=== PATIENT | female | born 1970 | race Caucasian/White ===

== ENCOUNTER 2017-01-18 20:11 | Emergency (ER) | payer OTHER ==
[~2017-01-18] VITALS: Ht 170.2 cm; Wt 59.0 kg
[~2017-01-18 20:11] MED LIST: ACID CONTROL20 MG PO; ADVAIR 100-501 EACH; B COMPLEX1 EAC1 PO; BACTRIM DS TAB1 EACH PO; CELEXA40 MG PO; CIPROFLOXACIN500 M1 PO; CLEOCIN HCL150 MG PO; DOXYCYCLINE 10100 MG PO; GLUCOSAMINE HC500 MG PO; GLUCOSAMINE1000 MG; HYDROXYZINE PAM50 MG PO; IBUPROFEN 800800 MG PO; INVEGA9 MG PO; KEFLEX500 MG PO; LATUDA60 MG PO; LORAZEPAM 0.50.5 MG PO; MEN'S MULTI-VI1 EACH PO; MILK THISTLE1 GM; MILK THISTLE150 MG PO; MULTI-VITAMIN1 EAC5; NORCO 10-325 T1 EACH PO; NORCO 5-325 TA1 EACH PO; PROAIR HFA8.5 GM; SYMBICORT80 MCG/4.1 INH; TESSALON PERLE100 MG PO; ULTRAM 50MG TAB50 MG PO; VALIUM5 MG PO; VITAMIN B-1100 M1 PO; ZOFRAN ODT4 MG PO
[2017-01-18] MEDS ORDERED: LATUDA20 MG PO (20:29)
[2017-01-18] MEDS ORDERED: SEROQUEL 25 MG25 M1 PO (20:30)
[2017-01-18 20:51] LABS: URINE BILIRUBIN NEGATIVE (Negative); URINE BLOOD 2+ (Negative); URINE COLOR YELLOW; URINE GLUCOSE-RANDOM* NEGATIVE (Negative); URINE KETONES NEGATIVE (Negative); URINE NITRITE NEGATIVE (Negative); URINE PROTEIN (DIPSTICK) NEGATIVE (Negative); URINE SPECIFIC GRAVITY 1.015 (1.003-1.035); URINE UROBILINOGEN 0.2 E.U./dl (0.2-1.0)
[2017-01-18 21:01] LABS: CASTS None Seen /LPF (None Seen); CRYSTALS None Seen /LPF (None Seen); SQUAMOUS 0-3 Few /LPF (0-3)
[2017-01-18 21:02] LABS: BACTERIA 1-9 Few /HPF (None Seen); URINE RBC 0-2 Rare /HPF (0-2); URINE WBC None Seen /HPF (0-5)
[2017-01-18 21:05] LABS: ABSOLUTE NEUTROPHILS 3.1 thou/uL (1.4-8.2); BASOPHILS 1.1 % (0.0-2.0); EOSINOPHILS 5.2 % (0.0-3.0); HEMATOCRIT 38.2 % (37.0-47.0); HEMOGLOBIN 13.4 gm/dL (12.0-15.0); LYMPHOCYTES 31.6 % (24.0-44.0); MCH 35.1 pg (26.0-34.0); MCHC 35.1 g/dL (28.0-37.0); MCV 100.1 fL (80.0-100.0); MONOCYTES 11.4 % (1.0-8.0); PLATELET COUNT 226 thou/uL (150-400); POLYS 50.7 % (36.0-66.0); RBC 3.82 mil/uL (4.20-5.00); RDW 13.3 % (10.5-14.5); WBC 6.1 thou/uL (4.0-11.0)
[2017-01-18 21:09] LABS: AMP/METHAMP POSITIVE (Negative); BARBITURATES Negative (Negative); BENZODIAZEPINES Negative (Negative); COCAINE POSITIVE (Negative); METHADONE Negative (Negative); OPIATES Negative (Negative); PCP Negative (Negative); THC Negative (Negative)
[2017-01-18 21:10] LABS: MANUAL DIFF NO
[2017-01-18 21:11] LABS: CALCIUM 8.8 mg/dL (8.5-10.1); CREATININE 0.9 mg/dL (0.6-1.0); POTASSIUM 4.2 mmol/L (3.5-5.1)
[2017-01-18 21:16] LABS: ALBUMIN 3.4 g/dL (3.4-5.0); TOTAL BILIRUBIN 0.3 mg/dL (<0.1-1.0); TOTAL PROTEIN 7.7 g/dL (6.4-8.2)
== END 2017-01-18 21:27 | disposition home or self-care (01) ==
LOC: ER 20:11
PROVIDERS: Physician Assistant
DX: F19.10 Other psychoactive substance abuse, uncomplicated (principal); R94.5 Abnormal results of liver function studies; F10.10 Alcohol abuse, uncomplicated; F17.210 Nicotine dependence, cigarettes, uncomplicated; Z86.19 Personal history of other infectious and parasitic diseases; Y90.4 Blood alcohol level of 80-99 mg/100 ml

== ENCOUNTER 2017-05-10 20:44 | Emergency (ER) | payer OTHER ==
[~2017-05-10] VITALS: Ht 170.2 cm; Wt 58.1 kg
[~2017-05-10 20:44] MED LIST changes: +LATUDA20 MG PO; +SEROQUEL 25 MG25 M1 PO
[2017-05-10] MEDS ORDERED: NORCO 5-325 TA1 EACH PO (22:23)
[2017-05-10] MEDS ORDERED: KEFLEX500 MG PO (22:23)
== END 2017-05-10 22:38 | disposition home or self-care (01) ==
LOC: ER 20:44
DX: S81.811A Laceration without foreign body, right lower leg, initial encounter (principal); S60.212A Contusion of left wrist, initial encounter; F17.210 Nicotine dependence, cigarettes, uncomplicated; F10.99 Alcohol use, unspecified with unspecified alcohol-induced disorder; Z86.19 Personal history of other infectious and parasitic diseases; W23.0XXA Caught, crushed, jammed, or pinched between moving objects, initial encounter; Y93.01 Activity, walking, marching and hiking; Y92.89 Other specified places as the place of occurrence of the external cause; Y99.8 Other external cause status

== ENCOUNTER 2017-09-28 15:29 | Emergency (ER) | payer OTHER ==
[~2017-09-28] VITALS: Ht 170.2 cm; Wt 56.7 kg
[2017-09-28] MEDS ORDERED: OSELB75 PO ×2 (17:18→17:19)
[2017-09-28] MEDS ORDERED: TESSALON PERLE100 MG PO ×2 (17:18→17:19)
[2017-09-28 18:08] VITALS: BP 129/63
[2018-04-12] MEDS ORDERED: AUGMENTIN 875-1 EACH PO (15:33)
[2018-04-12] MEDS ORDERED: FOLIC ACID1 MG PO (15:33)
== END 2017-09-28 18:09 | disposition home or self-care (01) ==
LOC: ER 15:29
DX: J11.1 Influenza due to unidentified influenza virus with other respiratory manifestations (principal); F17.210 Nicotine dependence, cigarettes, uncomplicated

== ENCOUNTER 2017-12-19 23:11 | Emergency (ER) | payer OTHER ==
[~2017-12-19] VITALS: Ht 170.2 cm; Wt 56.7 kg
[~2017-12-19 23:11] MED LIST changes: +OSELB75 PO
[2017-12-19] MEDS ORDERED: ACIDOPHILUS1 EAC3 PO (23:49)
[2017-12-20 00:30] LABS: AMP/METHAMP POSITIVE (Negative); BARBITURATES Negative (Negative); BENZODIAZEPINES Negative (Negative); COCAINE POSITIVE (Negative); METHADONE Negative (Negative); OPIATES Negative (Negative); PCP Negative (Negative)
[2017-12-20 00:32] LABS: ABSOLUTE NEUTROPHILS 2.6 thou/uL (1.4-8.2); BASOPHILS 0.3 % (0.0-2.0); EOSINOPHILS 4.8 % (0.0-3.0); HEMATOCRIT 39.5 % (37.0-47.0); HEMOGLOBIN 13.8 gm/dL (12.0-15.0); LYMPHOCYTES 40.9 % (24.0-44.0); MCH 35.2 pg (26.0-34.0); MCHC 34.8 g/dL (28.0-37.0); MCV 101.1 fL (80.0-100.0); MONOCYTES 10.7 % (1.0-8.0); PLATELET COUNT 207 thou/uL (150-400); POLYS 43.3 % (36.0-66.0); RBC 3.91 mil/uL (4.20-5.00); RDW 12.9 % (10.5-14.5); WBC 6.1 thou/uL (4.0-11.0)
[2017-12-20 00:41] LABS: CALCIUM 9.2 mg/dL (8.5-10.1); CREATININE 0.8 mg/dL (0.6-1.0); POTASSIUM 3.5 mmol/L (3.5-5.1)
[2017-12-20 00:47] LABS: ALBUMIN 3.4 g/dL (3.4-5.0); TOTAL BILIRUBIN 0.2 mg/dL (<0.1-1.0); TOTAL PROTEIN 7.9 g/dL (6.4-8.2)
[2017-12-20] MEDS ORDERED: MIRALAX17 GM PO (02:37)
== END 2017-12-20 02:40 | disposition home or self-care (01) ==
LOC: ER 23:11
PROVIDERS: Emergency Medicine
DX: R10.13 Epigastric pain (principal); F10.10 Alcohol abuse, uncomplicated; F15.10 Other stimulant abuse, uncomplicated; F14.10 Cocaine abuse, uncomplicated; F17.210 Nicotine dependence, cigarettes, uncomplicated

== ENCOUNTER 2018-06-11 04:23 | Emergency (ER) | payer OTHER ==
[~2018-06-11] VITALS: Ht 172.7 cm; Wt 54.4 kg
[~2018-06-11 04:23] MED LIST changes: +ACIDOPHILUS1 EAC3 PO; +AUGMENTIN 875-1 EACH PO; +FOLIC ACID1 MG PO; +MIRALAX17 GM PO
[2018-06-11] MEDS ORDERED: NOHOMEMEDICATIONS (04:36)
[2018-06-11] MEDS ORDERED: NAPROSYN500 MG PO (04:55)
[2018-06-11] MEDS ORDERED: TRAMADOL 50 MG50 MG PO (04:55)
[2018-06-11] MEDS ORDERED: NORFLEX100 MG PO (04:55)
== END 2018-06-11 06:26 | disposition home or self-care (01) ==
LOC: ER 04:23
DX: S00.83XA Contusion of other part of head, initial encounter (principal); F10.129 Alcohol abuse with intoxication, unspecified; M43.6 Torticollis; S80.211A Abrasion, right knee, initial encounter; F17.210 Nicotine dependence, cigarettes, uncomplicated; V28.4XXA Motorcycle driver injured in noncollision transport accident in traffic accident, initial encounter; Y93.89 Activity, other specified; Y92.89 Other specified places as the place of occurrence of the external cause; Y99.8 Other external cause status

== ENCOUNTER 2018-07-01 16:07 | Emergency (ER) | payer OTHER ==
[~2018-07-01] VITALS: Ht 170.2 cm; Wt 58.1 kg
[~2018-07-01 16:07] MED LIST changes: +NAPROSYN500 MG PO; +NOHOMEMEDICATIONS; +NORFLEX100 MG PO; +TRAMADOL 50 MG50 MG PO
[2018-07-01 16:10] VITALS: BP 142/76
[2018-07-01] MEDS ORDERED: NORCO 5-325 TA1 EACH PO (16:33)
== END 2018-07-01 16:50 | disposition home or self-care (01) ==
LOC: ER 16:07
DX: S43.101D Unspecified dislocation of right acromioclavicular joint, subsequent encounter (principal); X58.XXXD Exposure to other specified factors, subsequent encounter; Z76.0 Encounter for issue of repeat prescription; G89.29 Other chronic pain; F17.210 Nicotine dependence, cigarettes, uncomplicated